=== PATIENT | male | born 1960 | race Hispanic/Latino ===

== ENCOUNTER 2017-09-18 18:32 | Emergency (ER) | payer MEDICARE ==
[2017-09-18 18:40] VITALS: BP 154/79; PULSE 74; RESP 16; TEMP 97.7; O2SAT 95
--- NOTE | 2017-09-18 18:54 | ED PDOC ---
Lower Extremity Pain/Injury Time Seen by Provider: 09/18/17 18:47 Chief Complaint (Nursing): Lower Extremity Problem/Injury Chief Complaint (Provider): possible FB in foot History Per: Patient Onset/Duration Of Symptoms: Days (x2 days) Current Symptoms Are (Timing): Still Present Additional Complaint(s): 57 y/o male presents to the ED complaining of right foot pain after stepping on a piece of wood last night. Patient states he may have splinter in his foot as every time he walks he feels pain. Patient denies fever, chills, or any further medical complaints. PMD: Orlin Johnson MD Past Medical History Reviewed: Historical Data, Nursing Documentation, Vital Signs Vital Signs: Last Vital Signs Temp 97.7 F 09/18/17 18:38 Pulse 74 09/18/17 18:38 Resp 16 09/18/17 18:38 BP 154/79 H 09/18/17 18:38 Pulse Ox 95 09/18/17 18:38 - Medical History PMH: Atrial Fibrillation, HTN, Hyperlipidemia, Sleep Apnea (not on CPap) - Surgical History Surgical History: Hernia Repair Other surgeries: right knee surgery, right foot surgery - Family History Family History: States: No Known Family Hx - Living Arrangements Living Arrangements: With Family - Social History Current smoker - smoking cessation education provided: No Alcohol: None Drugs: Denies - Immunization History Hx Tetanus Toxoid Vaccination: Yes - Home Medications Home Medications: Ambulatory Orders Medication Instructions Recorded Acetaminophen with Codeine 1 tab PO QID PRN 11/06/15 [Tylenol with Codeine No. 3 300 mg-30 mg] Aspirin [Ecotrin] 81 mg PO DAILY 11/06/15 Budesonide [Pulmicort Flexhaler] 180 mcg IH DAILY 11/06/15 Cetirizine HCl [Zyrtec Allergy] 10 mg PO DAILY 11/06/15 Metoprolol Succinate [Toprol XL] 100 mg PO DAILY 11/06/15 Mometasone Furoate [Nasonex] 17 gm NS DAILY 11/06/15 Ramipril [Altace] 2.5 mg PO DAILY 11/06/15 Silodosin [Rapaflo] 8 mg PO DAILY 11/06/15 Simvastatin 20 mg PO DAILY 11/06/15 Sulfamethoxazole/Trimethoprim 1 tab PO Q12 #0 tab 02/01/16 [Bactrim DS 800 mg-160 mg] Methylprednisolone [Medrol Dose 4 mg PO DAILY #21 mg 02/01/17 Pack (21 tabs)] Promethazine HCl/Codeine 5 ml PO HS #80 ml 02/01/17 [Prometh-Codein 6.25-10 mg/5 ml] - Allergies Allergies/Adverse Reactions: Allergies Allergy/AdvReac Type Severity Reaction Status Date / Time fentanyl AdvReac Intermediate VOMITING Verified 02/01/17 23:32 iv dye Allergy Intermediate SHORTNESS Uncoded 11/06/15 14:48 OF BREATH Review of Systems ROS Statement: Except As Marked, All Systems Reviewed And Found Negative (As per HPI, otherwise negative) Constitutional: Negative for: Fever, Chills Musculoskeletal: Positive for: Foot Pain (Right foot pain, possible foreign body ) Physical Exam - Reviewed Nursing Documentation Reviewed: Yes Vital Signs Reviewed: Yes - Physical Exam Appears: Positive for: Well, Non-toxic, No Acute Distress Skin: Positive for: Normal Color. Negative for: Rash Eye Exam: Positive for: Normal appearance Extremity: Positive for: Other (? splinter noted to palmar aspect of right foot , tenderness to affected area, no erythema or signs of infection) Neurologic/Psych: Positive for: Alert, Oriented (x3) - ECG O2 Sat by Pulse Oximetry: 95 (RA) Pulse Ox Interpretation: Normal - Other Rad Right foot x-ray X-Ray: Interpreted by Me, Viewed By Me X-Ray Interpretation: no fx, degenerative changes, heel spur, no radiopaque FB Medical Decision Making Medical Decision Making: Time: 18:53 Initial Impression: 57 y/o male with possible foreign body in right foot Plan: x-ray right foot Podiatry consult 8:30 pm: Dr. Sanches, podiatry resident at bedside. Resident recommends conservative treatment as foreign body is minute and should come out on its own. Patient was instructed to soak foot in epsom salts. Ortho shoe was applied to foot. Patient agrees with plan. Patient has a returning officer who will follow up with as outpatient. Scribe Attestation: Documented by Kit Rush acting as a scribe for Emily Fall MD. Scribe Attestation: All medical record entries made by the Scribe were at my direction and personally dictated by me. I have reviewed the chart and agree that the record accurately reflects my personal performance of the history, physical exam, medical decision making, and the department course for this patient. I have also personally directed, reviewed, and agree with the discharge instructions and disposition. Disposition - Clinical Impression Clinical Impression: Splinter of foot - Patient ED Disposition Is Patient to be Admitted: No Counseled Patient/Family Regarding: Studies Performed, Diagnosis, Need For Followup - Disposition Referrals: Podiatry Clinic [Outside] Disposition: Routine/Home Disposition Time: 20:35 Condition: STABLE Additional Instructions: Soak right foot in warm water and epsom salts. Tylenol or advil for pain as needed Follow up next week with your returning officer. Instructions: Soft Tissue Foreign Body (ED) Forms: [employer] (Ukrainian)
[2017-09-18] MEDS ORDERED: Lidocaine 1% Inj (20ml) IJ STA (19:58)
[2017-09-18] MEDS ORDERED: Lidocaine 1% Inj (20ml) ONE (20:01)
--- NOTE | 2017-09-18 20:15 | CP.PCM.CON ---
History of Present Illness - History of Present Illness History of Present Illness: 57 y/o male seen at bedside in ED after stepping on a wood floor yesterday and feeling a splinter perforate through the bottom of his right foot. Pt states he has felt pain and discomfort since the event and has been having difficulty walking due to the pain. Pt states he tried to see if he could pull it out but was unable to visualize anything. Pt denies taking any medications for the pain. Pt denies numbness, tingling or burning in the foot. Pt denies F/C/N/V/CP/ SOB PMH: arrhythmia, HTN PSH: "several surgeries" All: IV contrast dye, fentanyl Social Hx: social EtOH; denies cigarette or illicit drug use Review of Systems - Review of Systems All systems: reviewed and no additional remarkable complaints except (per HPI) Past Patient History - Past Medical History & Family History Past Medical History?: Yes - Past Social History Alcohol: None Drugs: Denies - CARDIAC Hx Atrial Fibrillation: Yes Hx Hypertension: Yes - PULMONARY Hx Sleep Apnea: Yes (not on CPap) - NEUROLOGICAL Hx Neurological Disorder: No - MUSCULOSKELETAL/RHEUMATOLOGICAL Hx Musculoskeletal Disorders: Yes Hx Back Pain: Yes Hx Falls: No Other/Comment: soulder, neck, knee problems - GASTROINTESTINAL Other/Comment: mesh in stomach - PSYCHIATRIC Hx Substance Use: No - SURGICAL HISTORY Hx Surgeries: Yes Hx Herniorrhaphy: Yes (mesh) Other/Comment: neck disc fusion, right knee surgery. right shoulder surgery. - ANESTHESIA Hx Anesthesia: Yes Hx Anesthesia Reactions: Yes (Fentanol allergy) Meds Allergies/Adverse Reactions: Allergies Allergy/AdvReac Type Severity Reaction Status Date / Time fentanyl AdvReac Intermediate VOMITING Verified 02/01/17 23:32 iv dye Allergy Intermediate SHORTNESS Uncoded 11/06/15 14:48 OF BREATH Physical Exam - Constitutional Appears: Well, Non-toxic, No Acute Distress - Extremities Exam Additional comments: Right lower extremity focused examination: Vasc: DP/PT pulses palpable 2/4. Temp gradient warm to cool. Pedal hair growth present. CFT < 3 sec to all digits. No pedal edema noted Derm: Pinpoint wood splinter noted to plantar aspect of foot at level of sub met 4. No surrounding erythema, no cellulitis, no drainage, no malodor, no purulence. No clinical signs of infection Neuro: Protective sensation grossly intact Ortho: Tenderness to palpation sub met 4 in area of wood splinter. All joints exhibit normal ROM upon both active and passive assessment - Neurological Exam Neurological exam: Alert, Oriented x3 - Psychiatric Exam Psychiatric exam: Normal Affect, Normal Mood Results - Vital Signs Recent Vital Signs: Last Vital Signs Temp 97.7 F 09/18/17 18:38 Pulse 74 09/18/17 18:38 Resp 16 09/18/17 18:38 BP 154/79 H 09/18/17 18:38 Pulse Ox 95 09/18/17 20:01 Assessment & Plan - Assessment and Plan (Free Text) Assessment: 57 y/o male with wooden splinter in right foor secondary to trauma Plan: Pt seen and evaluated in ED Discussed plan with attending Dr. Inman X-rays of R foot reviewed- no acute fracture or dislocation, no foreign body Surgical shoe and offloading forefoot bandage applied to R foot Pt instructed to perform daily warm water and epsom salt soaks Pt to follow up with his private rail signal mechanic Dr. Gan Thank you for this consult
--- NOTE | 2017-09-19 08:39 | RAD ---
PROCEDURE: Right Foot Radiographs. HISTORY: ? plantar FB COMPARISON: None. FINDINGS: BONES: Normal. No fracture. JOINTS: Normal. SOFT TISSUES: Normal. OTHER FINDINGS: Heel spur. IMPRESSION: No fracture.
== END 2017-09-18 20:44 | disposition home or self-care (01) ==
LOC: H.ER 18:32
DX: S90.859A Superficial foreign body, unspecified foot, initial encounter (principal); I10 Essential (primary) hypertension

== ENCOUNTER 2018-08-19 08:21 | Observation (INO) | payer MEDICARE ==
[2018-08-19] MEDS ORDERED: Sodium Chloride 0.9% 1,000 ML IV STA (09:20)
[2018-08-19 09:51] LABS: BASO # 0.1 K/uL (0.0-0.2); BASO % 0.6 % (0.0-2.0); EOS # 0.1 K/uL (0.0-0.7); EOS % 0.6 % (0.0-4.0); HEMOGLOBIN 15.4 g/dL (12.0-18.0); LYMPH # 1.1 K/uL (1.0-4.3); LYMPH % 11.8 % (20.0-40.0); MEAN CELL VOLUME 88.3 fl (80.0-94.0); MEAN CORPUSCULAR HEMOGLOBIN 30.1 pg (27.0-31.0); MEAN CORPUSCULAR HGB CONC 34.1 g/dL (33.0-37.0); MEAN PLATELET VOLUME 7.9 fl (7.2-11.7); MONO # 0.5 K/uL (0.0-0.8); MONO % 6.1 % (0.0-10.0); NEUT # 7.3 K/uL (1.8-7.0); NEUT % 80.9 % (50.0-75.0); RBC 5.1 Mil/uL (4.40-5.90); RED CELL DISTRIBUTION WIDTH 13.3 % (11.5-14.5)
[2018-08-19 09:57] LABS: ALB/GLOB RATIO 1.3 (1.0-2.1); ALBUMIN 4.5 g/dL (3.5-5.0); ALT/SGPT 47 U/L (21-72); AST/SGOT 38 U/L (17-59); BLOOD UREA NITROGEN 16 mg/dl (9-20); CALCIUM 9.5 mg/dL (8.4-10.2); GFR NON-AFRICAN AMERICAN > 60
[2018-08-19 10:01] LABS: URINE BILIRUBIN NEGATIVE (NEGATIVE); URINE BLOOD LARGE (NEGATIVE); URINE CLARITY CLEAR (Clear); URINE COLOR YELLOW (YELLOW); URINE GLUCOSE (UA) NEG (Normal); URINE LEUKOCYTE ESTERASE NEG Leu/uL (Negative); URINE PROTEIN NEGATIVE (NEGATIVE); URINE UROBILINOGEN 0.2-1.0 mg/dL (0.2-1.0)
--- NOTE | 2018-08-19 10:04 | ED PDOC ---
HPI: Abdomen Time Seen by Provider: 08/19/18 09:00 Chief Complaint (Nursing): Abdominal Pain Chief Complaint (Provider): Abdominal Pain History Per: Patient History/Exam Limitations: no limitations Onset/Duration Of Symptoms: Hrs (x 10) Current Symptoms Are (Timing): Still Present Location Of Pain/Discomfort: LUQ, LLQ Quality Of Discomfort: "Pain" Associated Symptoms: Back Pain Additional Complaint(s): 58 year old male with a history of atrial fibrillation, UTIs and kidney stones presents to the ED with left sided abdominal pain radiating to his back for the 10 hours. Patient reports he took Tylenol with codeine and vomited three times likely because he did not eat anything before them. He states that the pain feels similar to his kidney stones. Denies dysuria, hematuria, fever, headache and other complaints. PMD: Dr. Johnson Past Medical History Reviewed: Historical Data, Nursing Documentation, Vital Signs Vital Signs: Last Vital Signs Temp 97.6 F 08/19/18 08:25 Pulse 85 08/19/18 08:25 Resp 18 08/19/18 08:25 BP 162/120 H 08/19/18 08:25 Pulse Ox 95 08/19/18 08:25 - Medical History PMH: Atrial Fibrillation, HTN, Hyperlipidemia, Kidney Stones, Chronic Kidney Disease, Sleep Apnea (not on CPap) - Surgical History Surgical History: Hernia Repair - Family History Family History: States: Unknown Family Hx - Social History Current smoker - smoking cessation education provided: No Alcohol: None Drugs: Denies - Immunization History Hx Tetanus Toxoid Vaccination: Yes Hx Influenza Vaccination: Yes Hx Pneumococcal Vaccination: No - Home Medications Home Medications: Ambulatory Orders Medication Instructions Recorded Ascorbic Acid [Vitamin C 500 mg 1 tab PO DAILY 08/19/18 Tab] Finasteride [Proscar] 5 mg PO DAILY 08/19/18 Garlic 1 cap PO DAILY 08/19/18 Metoprolol Tartrate [Lopressor] 100 mg PO DAILY 08/19/18 RX: Aspirin [Ecotrin] 81 mg PO DAILY 08/19/18 RX: Cetirizine HCl [All Day 10 mg PO DAILY 08/19/18 Allergy Relief] RX: Ramipril [Altace] 2.5 mg PO DAILY 08/19/18 Simvastatin 10 mg PO HS 08/19/18 Tamsulosin [Flomax] 0.4 mg PO DAILY 08/19/18 - Allergies Allergies/Adverse Reactions: Allergies Allergy/AdvReac Type Severity Reaction Status Date / Time fentanyl AdvReac Intermediate VOMITING Verified 08/19/18 08:25 iv dye Allergy Intermediate SHORTNESS Uncoded 08/19/18 08:25 OF BREATH Review of Systems ROS Statement: Except As Marked, All Systems Reviewed And Found Negative Constitutional: Negative for: Fever Gastrointestinal: Positive for: Vomiting (x 3), Abdominal Pain (left sided). Negative for: Diarrhea Musculoskeletal: Positive for: Back Pain Physical Exam - Reviewed Nursing Documentation Reviewed: Yes Vital Signs Reviewed: Yes - Physical Exam Appears: Positive for: Non-toxic, No Acute Distress (obese) Head Exam: Positive for: ATRAUMATIC, NORMAL INSPECTION, NORMOCEPHALIC Skin: Positive for: Normal Color, Warm, Dry Eye Exam: Positive for: EOMI, Normal appearance, PERRL ENT: Positive for: Normal ENT Inspection Neck: Positive for: Normal, Painless ROM, Supple Cardiovascular/Chest: Positive for: Regular Rate, Rhythm. Negative for: Murmur Respiratory: Positive for: Normal Breath Sounds. Negative for: Wheezing, Respiratory Distress Gastrointestinal/Abdominal: Positive for: Bowel Sounds, Soft, Tenderness (mild left abdominal tenderness ). Negative for: Guarding Back: Positive for: Normal Inspection, L CVA Tenderness. Negative for: R CVA Tenderness Extremity: Positive for: Normal ROM (upper and lower extremities ). Negative for: Deformity Neurologic/Psych: Positive for: Alert, Oriented. Negative for: Motor/Sensory Deficits - Laboratory Results Result Diagrams: 08/19/18 09:30 08/19/18 09:30 - ECG O2 Sat by Pulse Oximetry: 95 (RA) Pulse Ox Interpretation: Normal Medical Decision Making Medical Decision Makin:18 Impression: abdominal pain r/o kidney stones and UTI --Abd & Pelvis CT --CMP --CBC --NS IV --Toradol 30 mg IV --Zofran Inj 4 mg IV --Urine cx --Urinalysis 10:50 Abd & Pelvis CT FINDINGS: LOWER THORAX: Unremarkable. LIVER: Extensive diffuse fatty infiltration of the liver. Smooth contour. No mass. No biliary ductal dilatation. No hepatomegaly. GALLBLADDER AND BILE DUCTS: Unremarkable. PANCREAS: Unremarkable. No gross lesion or ductal dilatation. SPLEEN: Minimal splenomegaly, up to 14.1 cm greatest dimension. No focal mass. ADRENALS: Unremarkable. No mass. KIDNEYS AND URETERS: Mild left hydronephrosis and proximal left hydroureter. Obstructing 6 mm calculus in proximal left ureter. 2 mm nonobstructing right upper pole renal calculus. No left renal calculus.. No renal mass. No right hydronephrosis. VASCULATURE: Unremarkable. No aortic aneurysm. Minimal atherosclerotic calcification of the a bdominal aorta. BOWEL: Unremarkable. No obstruction. No gross mural thickening. APPENDIX: Not identified. No secondary findings. PERITONEUM: Unremarkable. No free fluid. No free air. LYMPH NODES: Unremarkable. No enlarged lymph nodes. BLADDER: Unremarkable. REPRODUCTIVE: Normal prostate BONES: No acute fracture. OTHER FINDINGS: None. IMPRESSION: Obstructing 6 mm proximal left ureteral calculus with mild hydronephrosis and proximal hydroureter. 2 mm nonobstructing right upper pole renal calculus. Severe fatty infiltration of the liver. No additional abnormality. 12:07 --Upon reevaluation, patient is reporting mild improvement of symptoms but states still some pain. States that his last kidney stone was located in the same place 10 years ago and he had lithotripsy done at the time. Also reports that he wants a new urologist because his current one is in [place]. 13:[address] Liao, urologist senior [employer] consultant, states since stone is so large, will operate tomorrow either with lithotripsy or another means. pt agreeable, pt pcp caryn, admits to hospitalist, Dr martino aware. Scribe Attestation: Documented by Arlet Oliveira acting as a scribe for Shanell Willis MD Provider Scribe Attestation: All medical record entries made by the Scribe were at my direction and personally dictated by me. I have reviewed the chart and agree that the record accurately reflects my personal performance of the history, physical exam, medical decision making, and the department course for this patient. I have also personally directed, reviewed, and agree with the discharge instructions and disposition. Disposition - Clinical Impression Clinical Impression: Nephrolithiasis - Patient ED Disposition Is Patient to be Admitted: Yes Counseled Patient/Family Regarding: Studies Performed, Diagnosis - Disposition Disposition Time: 12:45 Condition: STABLE
--- NOTE | 2018-08-19 10:52 | CT ---
Date of service: 08/19/2018 PROCEDURE: CT Abdomen and Pelvis without intravenous contrast HISTORY: abd pain COMPARISON: 07/11/2011 TECHNIQUE: Without contrast.. Contrast dose: 0 Radiation dose: Total exam DLP = 0.0 mGy-cm. This CT exam was performed using one or more of the following dose reduction techniques: Automated exposure control, adjustment of the mA and/or kV according to patient size, and/or use of iterative reconstruction technique. FINDINGS: LOWER THORAX: Unremarkable. LIVER: Extensive diffuse fatty infiltration of the liver. Smooth contour. No mass. No biliary ductal dilatation. No hepatomegaly. GALLBLADDER AND BILE DUCTS: Unremarkable. PANCREAS: Unremarkable. No gross lesion or ductal dilatation. SPLEEN: Minimal splenomegaly, up to 14.1 cm greatest dimension. No focal mass. ADRENALS: Unremarkable. No mass. KIDNEYS AND URETERS: Mild left hydronephrosis and proximal left hydroureter. Obstructing 6 mm calculus in proximal left ureter. 2 mm nonobstructing right upper pole renal calculus. No left renal calculus.. No renal mass. No right hydronephrosis. VASCULATURE: Unremarkable. No aortic aneurysm. Minimal atherosclerotic calcification of the abdominal aorta. BOWEL: Unremarkable. No obstruction. No gross mural thickening. APPENDIX: Not identified. No secondary findings. PERITONEUM: Unremarkable. No free fluid. No free air. LYMPH NODES: Unremarkable. No enlarged lymph nodes. BLADDER: Unremarkable. REPRODUCTIVE: Normal prostate BONES: No acute fracture. OTHER FINDINGS: None. IMPRESSION: Obstructing 6 mm proximal left ureteral calculus with mild hydronephrosis and proximal hydroureter. 2 mm nonobstructing right upper pole renal calculus. Severe fatty infiltration of the liver. No additional abnormality.
[2018-08-19] MEDS: Pantoprazole 40 mg EC Tab PO SCH (14:20)
[2018-08-19] MEDS ORDERED: Pantoprazole 40 mg EC Tab PO ONE (14:21)
--- NOTE | 2018-08-19 15:10 | CP.PCM.CON ---
History of Present Illness - History of Present Illness History of Present Illness: 58 year old male with a history of kidney stones presents to the ED with left sided abdominal pain radiating to his back for the [address] Scan: Obstructing 6 mm proximal left ureteral calculus with mild hydronephrosis and proximal hydroureter. 2 mm non obstructing right upper pole renal calculus. Severe fatty infiltration of the liver. PMH: PAC's Nephrolithiasis Hypertension EKG: NSR Dr Liao will perform lithotripsy in AM Meds: Metoprolol Altace simvastatin The patient is cleared for Surgery Past Patient History - Infectious Disease Hx of Infectious Diseases: None - Past Medical History & Family History Past Medical History?: Yes - Past Social History Alcohol: None Drugs: Denies - CARDIAC Hx Atrial Fibrillation: Yes Hx Hypertension: Yes - PULMONARY Hx Sleep Apnea: Yes (not on CPap) - NEUROLOGICAL Hx Neurological Disorder: No - RENAL Hx Chronic Kidney Disease: Yes Hx Kidney Stones: Yes - MUSCULOSKELETAL/RHEUMATOLOGICAL Hx Musculoskeletal Disorders: Yes Hx Back Pain: Yes Hx Falls: No Other/Comment: soulder, neck, knee problems - GASTROINTESTINAL Other/Comment: mesh in stomach - PSYCHIATRIC Hx Substance Use: No - SURGICAL HISTORY Hx Surgeries: Yes Hx Herniorrhaphy: Yes (mesh) Other/Comment: neck disc fusion, right knee surgery. right shoulder surgery. - ANESTHESIA Hx Anesthesia: Yes Hx Anesthesia Reactions: Yes (Fentanol allergy) Meds Allergies/Adverse Reactions: Allergies Allergy/AdvReac Type Severity Reaction Status Date / Time fentanyl AdvReac Intermediate VOMITING Verified 08/19/18 08:25 iv dye Allergy Intermediate SHORTNESS Uncoded 08/19/18 08:25 OF BREATH - Medications Medications: Current Medications Ascorbic Acid (Vitamin C 500 Mg Tab) 1 mg PO DAILY [facility] Finasteride (Proscar) 5 mg PO DAILY [facility] Heparin Sodium (Porcine) (Heparin) 5,000 units SC Q8 [facility]; Protocol Metoprolol Tartrate (Lopressor) 100 mg PO DAILY [facility] Morphine Sulfate (Morphine) 4 mg IVP Q4 PRN PRN Reason: Pain, moderate (4-7) Pantoprazole Sodium (Protonix Ec Tab) 40 mg PO DAILY [facility] Last Admin: 08/19/18 14:20 Dose: 40 mg Ramipril (Altace) 2.5 mg PO DAILY [facility] Tamsulosin HCl (Flomax) 0.4 mg PO DAILY [place] Physical Exam - Head Exam Head Exam: NORMAL INSPECTION - Eye Exam Eye Exam: Normal appearance - ENT Exam ENT Exam: Normal Exam - Neck Exam Neck exam: Positive for: Normal Inspection - Respiratory Exam Respiratory Exam: NORMAL BREATHING PATTERN - Cardiovascular Exam Cardiovascular Exam: REGULAR RHYTHM Results - Vital Signs Recent Vital Signs: Last Vital Signs Temp 97.6 F 08/19/18 12:09 Pulse 78 08/19/18 12:09 Resp 18 08/19/18 12:09 BP 148/70 08/19/18 12:09 Pulse Ox 95 08/19/18 14:10 - Labs Result Diagrams: 08/19/18 09:30 08/19/18 09:30 Labs: Laboratory Results - last 24 hr 08/19/18 08/19/18 08/19/18 09:30 09:30 09:30 WBC 9.0 D RBC 5.10 Hgb 15.4 Hct 45.0 MCV 88.3 MCH 30.1 MCHC 34.1 RDW 13.3 Plt Count 206 MPV 7.9 Neut % (Auto) 80.9 H Lymph % (Auto) 11.8 L Pope % (Auto) 6.1 Eos % (Auto) 0.6 Baso % (Auto) 0.6 Neut # (Auto) 7.3 H Lymph # (Auto) 1.1 Pope # (Auto) 0.5 Eos # (Auto) 0.1 Baso # (Auto) 0.1 Sodium 142 Potassium 4.6 Chloride 105 Carbon Dioxide 26 Anion Gap 16 BUN 16 Creatinine 1.2 Est GFR ( Amer) > 60 Est GFR (Non-Af Amer) > 60 Random Glucose 109 Calcium 9.5 Total Bilirubin 0.6 AST 38 ALT 47 Alkaline Phosphatase 71 Total Protein 7.9 Albumin 4.5 Globulin 3.4 Albumin/Globulin Ratio 1.3 Urine Color Yellow Urine Clarity Clear Urine pH 6.0 Ur Specific [place] 1.010 Urine Protein Negative Urine Glucose (UA) Neg Urine Ketones Negative Urine Blood Large Urine Nitrate Negative Urine Bilirubin Negative Urine Urobilinogen 0.2-1.0 Ur Leukocyte Esterase Neg Urine RBC (Auto) 17 H Urine Microscopic WBC 1 Assessment & Plan (1) Nephrolithiasis Assessment and Plan: Cardiac ceja the pt is cleared for surgery Status: Acute (2) Atrial arrhythmia Assessment and Plan: Pt has PMH of PAC's controlled pt is in Normal Sinus Rhythm Status: Acute (3) Essential (primary) hypertension Status: Acute
--- NOTE | 2018-08-19 16:01 | CP.PCM.HP ---
<Chloe Ramsay - Last Filed: 08/19/18 17:35> History of Present Illness - History of Present Illness History of Present Illness: 58 yo M with hx HTN, COPD, A-fib, chronic DVTs, admitted due to obstructing 6 mm proximal left ureteral calculus and mild hydronephrosis. Pt started experiencing 10/10 sharp pain radiating from left flank to left groin yesterday at 11 pm; he took 2 Tylenol #3s that he had at home, and pain did not resolve. This morning, he walked 3 blocks to the ED due to continued pain. Had 3 episodes of vomiting overnight; pt thinks this is because he took painkillers on empty stomach. ROS: denies chest pain, shortness of breath, abdominal pain, nausea, diarrhea, further vomiting, dysuria In ED: Vitals: initially hypertensive in ED at 162/120; then down to 148/70; HR 85, afebrile, RR 18, O2 sat 95 on RA Labs: no leukocytosis, no electrolyte abnormalities, large blood in urine on UA CT abd pelvis w/o contrast: Obstructing 6 mm proximal left ureteral calculus with mild hydronephrosis and proximal hydroureter. 2 mm nonobstructing right upper pole renal calculus. Severe fatty infiltration of the liver. No additional abnormality. Urology was consulted: Dr. Liao; will take pt to OR tomorrow for lithotripsy vs other means of intervention Med hx: as above Surg hx: right knee, right shoulder, cervical neck fusion, multiple nose surgeries, foot surg Allergies: fentanyl, IV dye Social hx: never smoker, social drinker, no drug use Fam hx: brother with nephrolithiasis Present on Admission - Present on Admission Any Indicators Present on Admission: Yes History of DVT/PE: Yes - Notes: Notes:: chronic DVT Review of Systems - Review of Systems All systems: reviewed and no additional remarkable complaints except Review of Systems: as per HPI Past Patient History - Infectious Disease Hx of Infectious Diseases: None - Past Medical History & Family History Past Medical History?: Yes - Past Social History Alcohol: None Drugs: Denies - CARDIAC Hx Atrial Fibrillation: Yes Hx Hypertension: Yes - PULMONARY Hx Sleep Apnea: Yes (not on CPap) - NEUROLOGICAL Hx Neurological Disorder: No - RENAL Hx Chronic Kidney Disease: Yes Hx Kidney Stones: Yes - MUSCULOSKELETAL/RHEUMATOLOGICAL Hx Musculoskeletal Disorders: Yes Hx Back Pain: Yes Hx Falls: No Other/Comment: [place], neck, knee problems - GASTROINTESTINAL Other/Comment: mesh in stomach - PSYCHIATRIC Hx Substance Use: No - SURGICAL HISTORY Hx Surgeries: Yes Hx Herniorrhaphy: Yes (mesh) Other/Comment: neck disc fusion, right knee surgery. right shoulder surgery. - ANESTHESIA Hx Anesthesia: Yes Hx Anesthesia Reactions: Yes (Fentanol allergy) Meds Allergies/Adverse Reactions: Allergies Allergy/AdvReac Type Severity Reaction Status Date / Time fentanyl AdvReac Intermediate VOMITING Verified 08/19/18 08:25 iv dye Allergy Intermediate SHORTNESS Uncoded 08/19/18 08:25 OF BREATH Physical Exam - Constitutional Appears: Non-toxic, No Acute Distress - Head Exam Head Exam: NORMAL INSPECTION - Eye Exam Eye Exam: Normal appearance - ENT Exam ENT Exam: Mucous Membranes Moist - Respiratory Exam Respiratory Exam: Clear to Auscultation Bilateral, NORMAL BREATHING PATTERN - Cardiovascular Exam Cardiovascular Exam: REGULAR RHYTHM, +S1, +S2 - GI/Abdominal Exam GI & Abdominal Exam: Normal Bowel Sounds, Soft. absent: Tenderness - Extremities Exam Extremities exam: Negative for: calf tenderness Additional comments: evidence of chronic venous stasis - Back Exam Back exam: absent: CVA tenderness (L) - Neurological Exam Neurological exam: Alert, Oriented x3 - Psychiatric Exam Psychiatric exam: Normal Mood - Skin Skin Exam: Normal Color, Warm - Additional Findings Additional findings: exam done after pt received pain meds in ED Results - Vital Signs Recent Vital Signs: Last Vital Signs Temp 97.6 F 08/19/18 12:09 Pulse 78 08/19/18 12:09 Resp 18 08/19/18 12:09 BP 148/70 08/19/18 12:09 Pulse Ox 95 08/19/18 14:10 - Labs Result Diagrams: 08/19/18 09:30 08/19/18 09:30 Labs: Laboratory Results - last 24 hr 08/19/18 08/19/18 08/19/18 09:30 09:30 09:30 WBC 9.0 D RBC 5.10 Hgb 15.4 Hct 45.0 MCV 88.3 MCH 30.1 MCHC 34.1 RDW 13.3 Plt Count 206 MPV 7.9 Neut % (Auto) 80.9 H Lymph % (Auto) 11.8 L [place] % (Auto) 6.1 Eos % (Auto) 0.6 Baso % (Auto) 0.6 Neut # (Auto) 7.3 H Lymph # (Auto) 1.1 [place] # (Auto) 0.5 Eos # (Auto) 0.1 Baso # (Auto) 0.1 Sodium 142 Potassium 4.6 Chloride 105 Carbon Dioxide 26 Anion Gap 16 BUN 16 Creatinine 1.2 Est GFR ( Amer) > 60 Est GFR (Non-Af Amer) > 60 Random Glucose 109 Calcium 9.5 Total Bilirubin 0.6 AST 38 ALT 47 Alkaline Phosphatase 71 Total Protein 7.9 Albumin 4.5 Globulin 3.4 Albumin/Globulin Ratio 1.3 Urine Color Yellow Urine Clarity Clear Urine pH 6.0 Ur Specific [place] 1.010 Urine Protein Negative Urine Glucose (UA) Neg Urine Ketones Negative Urine Blood Large Urine Nitrate Negative Urine Bilirubin Negative Urine Urobilinogen 0.2-1.0 Ur Leukocyte Esterase Neg Urine RBC (Auto) 17 H Urine Microscopic WBC 1 Assessment & Plan - Assessment and Plan (Free Text) Assessment: 58 yo M with hx HTN, COPD, A-fib, sleep apnea, chronic DVTs, admitted due to obstructing 6 mm proximal left ureteral calculus and mild hydronephrosis. Urology consulted; for OR tomorrow with Dr. Liao for either with lithotripsy or another means of intervention. Plan: Obstructing Nephrolithiasis - Urology consult - Dr. Liao - Pain control with morphine - Urine culture pending - Flomax Nausea - Zofran prn Hypertension -Resume home meds ramipril and metoprolol -Monitor BP COPD - Pulm consult - Dr. Johnson; pending clearance A-fib - Normal sinus rhythm on EKG in ED - Cardiology consult - Dr Dubois, pt's outpatient occupancy specialist; pending clearance Diet - Heart healthy diet for dinner - NPO overnight DVT prophylaxis - Pt has hx chronic DVTs for several years; start on regular prophylactic dose of heparin <Yohannes Gonzalez D - Last Filed: 08/19/18 18:45> Results - Vital Signs Recent Vital Signs: Last Vital Signs Temp 97.6 F 08/19/18 12:09 Pulse 79 08/19/18 17:05 Resp 18 08/19/18 12:09 BP 167/89 H 08/19/18 17:05 Pulse Ox 95 08/19/18 14:10 - Labs Result Diagrams: 08/19/18 09:30 08/19/18 09:30 Labs: Laboratory Results - last 24 hr 08/19/18 08/19/18 08/19/18 09:30 09:30 09:30 WBC 9.0 D RBC 5.10 Hgb 15.4 Hct 45.0 MCV 88.3 MCH 30.1 MCHC 34.1 RDW 13.3 Plt Count 206 MPV 7.9 Neut % (Auto) 80.9 H Lymph % (Auto) 11.8 L [place] % (Auto) 6.1 Eos % (Auto) 0.6 Baso % (Auto) 0.6 Neut # (Auto) 7.3 H Lymph # (Auto) 1.1 [place] # (Auto) 0.5 Eos # (Auto) 0.1 Baso # (Auto) 0.1 Sodium 142 Potassium 4.6 Chloride 105 Carbon Dioxide 26 Anion Gap 16 BUN 16 Creatinine 1.2 Est GFR ( Amer) > 60 Est GFR (Non-Af Amer) > 60 Random Glucose 109 Calcium 9.5 Total Bilirubin 0.6 AST 38 ALT 47 Alkaline Phosphatase 71 Total Protein 7.9 Albumin 4.5 Globulin 3.4 Albumin/Globulin Ratio 1.3 Urine Color Yellow Urine Clarity Clear Urine pH 6.0 Ur Specific [place] 1.010 Urine Protein Negative Urine Glucose (UA) Neg Urine Ketones Negative Urine Blood Large Urine Nitrate Negative Urine Bilirubin Negative Urine Urobilinogen 0.2-1.0 Ur Leukocyte Esterase Neg Urine RBC (Auto) 17 H Urine Microscopic WBC 1 Attending/Attestation - Attestation I have personally seen and examined this patient.: Yes I have fully participated in the care of the patient.: Yes I have reviewed all pertinent clinical information: Yes Notes (Text): 08/19/18 18:44 Patient seen and examined with resident. Case discussed and agreed with assessment and plan of management
[2018-08-19 20:23] LABS: PARTIAL THROMBOPLASTIN TIME 31.4 Seconds (25.6-37.1)
[2018-08-20] MEDS ORDERED: HYDROmorphone 0.5 mg/0.5 ml ISec IVP STA (02:51)
[2018-08-20 06:32] LABS: BASO % 0.5 % (0.0-2.0); EOS # 0.2 K/uL (0.0-0.7); EOS % 3.1 % (0.0-4.0); HEMOGLOBIN 13.4 g/dL (12.0-18.0); LYMPH # 1.1 K/uL (1.0-4.3); LYMPH % 15.6 % (20.0-40.0); MEAN CELL VOLUME 90.6 fl (80.0-94.0); MEAN CORPUSCULAR HEMOGLOBIN 30.2 pg (27.0-31.0); MEAN CORPUSCULAR HGB CONC 33.3 g/dL (33.0-37.0); MEAN PLATELET VOLUME 7.6 fl (7.2-11.7); MONO # 0.7 K/uL (0.0-0.8); MONO % 9.5 % (0.0-10.0); NEUT # 5.2 K/uL (1.8-7.0); NEUT % 71.3 % (50.0-75.0); NRBC % 0.1 % (0.0-0.0); RBC 4.44 Mil/uL (4.40-5.90); RED CELL DISTRIBUTION WIDTH 13.1 % (11.5-14.5); WHITE BLOOD COUNT 7.3 K/uL (4.8-10.8)
[2018-08-20 07:06] LABS: CALCIUM 8.7 mg/dL (8.4-10.2)
[2018-08-20] MEDS ORDERED: Succinylcholine 200 mg/10 ml Inj IV ONE (07:15)
[2018-08-20] MEDS ORDERED: Lidocaine 2% Jelly (Uro-Jet) ONE (07:15)
[2018-08-20] MEDS ORDERED: cefTRIAXone (Rocephin) 1 gm Inj ONE (07:15)
[2018-08-20] MEDS ORDERED: Midazolam 2 MG/2 ML VIAL ONE (07:15)
[2018-08-20] MEDS ORDERED: Propofol 10 mg/ml Inj (20 ML) ONE (07:15)
[2018-08-20] MEDS ORDERED: Lidocaine 1% Inj (20ml) ONE (07:16)
[2018-08-20] MEDS ORDERED: MethylPREDNISolone Depo 40 mg/ml Inj ONE (07:16)
[2018-08-20] MEDS ORDERED: Bupivacaine HCl 0.25% PF (30 ml) Inj ONE (07:16)
[2018-08-20] MEDS ORDERED: Iohexol 300 10 ML ONE (07:16)
[2018-08-20] MEDS ORDERED: Bupivacaine 0.5% Inj(30mL) ONE (07:17)
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
[2018-08-20] MEDS ORDERED: Ketamine 50 mg/ml Inj (10 ml) ONE (08:13)
[2018-08-20] MEDS ORDERED: Lactated Ringer's 1,000 ML IV ONE (08:15)
--- NOTE | 2018-08-20 09:20 | CP.PCM.PN ---
Subjective - Date & Time of Evaluation Date of Evaluation: 08/20/18 Time of Evaluation: 10:50 - Subjective Subjective: Pt seen and evaluated at bedside; just returned from uro procedure. States he feels some pain in his groin area, but otherwise feels okay. Feels hungry and about to eat (had been NPO overnight). Objective - Vital Signs/Intake and Output Vital Signs (last 24 hours): Temp Pulse Resp BP Pulse Ox 99.1 F 83 18 127/68 99 08/20/18 09:10 08/20/18 09:10 08/20/18 09:10 08/20/18 09:10 08/20/18 09:10 Intake and Output: 08/20/18 08/20/18 06:59 18:59 Intake Total 200 Balance 200 - Medications Medications: Current Medications Ascorbic Acid (Vitamin C 500 Mg Tab) 500 mg PO DAILY [facility] Finasteride (Proscar) 5 mg PO DAILY [facility] Heparin Sodium (Porcine) (Heparin) 5,000 units SC Q8 [facility]; Protocol Last Admin: 08/19/18 17:30 Dose: 5,000 units Metoprolol Tartrate (Lopressor) 100 mg PO DAILY [facility] Last Admin: 08/20/18 07:55 Dose: 100 mg Morphine Sulfate (Morphine) 4 mg IVP Q4 PRN PRN Reason: Pain, moderate (4-7) Last Admin: 08/20/18 02:35 Dose: 4 mg Ondansetron HCl (Zofran Inj) 4 mg IVP Q4 PRN PRN Reason: Nausea/Vomiting Last Admin: 08/20/18 05:59 Dose: 4 mg Pantoprazole Sodium (Protonix Ec Tab) 40 mg PO DAILY [facility] Last Admin: 08/19/18 14:20 Dose: 40 mg Ramipril (Altace) 2.5 mg PO DAILY [facility] Last Admin: 08/19/18 17:05 Dose: 2.5 mg Tamsulosin HCl (Flomax) 0.4 mg PO DAILY [facility] - Labs Labs: 08/20/18 05:20 08/20/18 05:20 PT 11.0 Seconds (9.8-13.1) 08/19/18 20:05 INR 1.0 08/19/18 20:05 APTT 31.4 Seconds (25.6-37.1) 08/19/18 20:05 - Constitutional Appears: No Acute Distress - Head Exam Head Exam: NORMAL INSPECTION - Eye Exam Eye Exam: Normal appearance - Neck Exam Neck Exam: Full ROM - Respiratory Exam Respiratory Exam: Clear to Ausculation Bilateral, NORMAL BREATHING PATTERN. absent: Wheezes, Respiratory Distress - Cardiovascular Exam Cardiovascular Exam: REGULAR RHYTHM, +S1, +S2 - GI/Abdominal Exam GI & Abdominal Exam: Soft, Tenderness (mild suprapubic tenderness) - Extremities Exam Extremities Exam: absent: Calf Tenderness - Back Exam Back Exam: absent: CVA tenderness (L), CVA tenderness (R) - Neurological Exam Neurological Exam: Alert, Oriented x3 - Skin Skin Exam: Warm Assessment and Plan - Assessment and Plan (Free Text) Assessment: 58 yo M with hx HTN, COPD, A-fib, sleep apnea, chronic DVTs, admitted due to obstructing 6 mm proximal left ureteral calculus and mild hydronephrosis. Urolog y consulted; pt is POD s/p urological procedure by Dr. Liao today. Plan: Obstructing Nephrolithiasis - Urology consult - Dr. Liao - POD 0, s/p procedure - Flomax Nausea - Zofran prn Hypertension -Resume home meds ramipril and metoprolol -Monitor BP COPD - Pulm consult - Dr. Johnson; cleared for surg yesterday - Stable A-fib - Normal sinus rhythm on EKG in ED - Cardiology consult - Dr Dubois, pt's outpatient mobile home technician saw pt; clear ed for surg yesterday Diet - Heart healthy diet DVT prophylaxis - Pt has hx chronic DVTs for several years; regular prophylactic dose of heparin
[2018-08-20 10:11] VITALS: RESP 20
--- NOTE | 2018-08-20 10:24 | RAD ---
Date of service: 08/19/2018 HISTORY: clearance COMPARISON: 02/01/2017 TECHNIQUE: Chest PA and lateral FINDINGS: LUNGS: No active pulmonary disease. PLEURA: No significant pleural effusion identified. No pneumothorax apparent. CARDIOVASCULAR: No aortic atherosclerotic calcification present. Normal cardiac size. No pulmonary vascular congestion. OSSEOUS STRUCTURES: No significant abnormalities. VISUALIZED UPPER ABDOMEN: Normal. OTHER FINDINGS: None. IMPRESSION: No active disease.
--- NOTE | 2018-08-20 10:50 | CARD ---
APPROVED REPORT Date of service: 08/19/2018 EKG Measurement Heart [id number] <Conclusion> Normal sinus rhythm Normal Electrocardiogram
[2018-08-20] MEDS: Pantoprazole 40 mg EC Tab PO SCH (10:58)
[2018-08-20 11:08] VITALS: PULSE 71
[2018-08-20 11:09] VITALS: BP 129/89; TEMP 98.4; O2SAT 94
--- NOTE | 2018-08-20 12:57 | CP.PCM.DIS ---
<Chloe Ramsay - Last Filed: 08/20/18 13:27> Provider - Provider Date of Admission: 08/19/18 13:15 Attending physician: Yohannes Gonzalez MD Primary care physician: Dr. Johnson Consults: Urology - Dr. Liao Pulmonology - Dr. Johnson Cardiology - Dr. Dubois Time Spent in preparation of Discharge (in minutes): 30 Diagnosis - Discharge Diagnosis (1) Nephrolithiasis Status: Acute Priority: High (2) S/P ureteral stent placement Status: Acute (3) Essential (primary) hypertension Status: Chronic Priority: High Hospital Course - Lab Results Lab Results: Micro Results 08/19/18 09:30 Urine,Clean Catch Urine Culture - Final No Growth (<1,000 CFU/ML) Most Recent Lab Values WBC 7.3 K/uL (4.8-10.8) 08/20/18 05:20 RBC 4.44 Mil/uL (4.40-5.90) 08/20/18 05:20 Hgb 13.4 g/dL (12.0-18.0) D 08/20/18 05:20 Hct 40.3 % (35.0-51.0) 08/20/18 05:20 MCV 90.6 fl (80.0-94.0) D 08/20/18 05:20 MCH 30.2 pg (27.0-31.0) 08/20/18 05:20 MCHC 33.3 g/dL (33.0-37.0) 08/20/18 05:20 RDW 13.1 % (11.5-14.5) 08/20/18 05:20 Plt Count 177 K/uL (130-400) 08/20/18 05:20 MPV 7.6 fl (7.2-11.7) 08/20/18 05:20 Neut % (Auto) 71.3 % (50.0-75.0) 08/20/18 05:20 Lymph % (Auto) 15.6 % (20.0-40.0) L 08/20/18 05:20 [place] % (Auto) 9.5 % (0.0-10.0) 08/20/18 05:20 Eos % (Auto) 3.1 % (0.0-4.0) 08/20/18 05:20 Baso % (Auto) 0.5 % (0.0-2.0) 08/20/18 05:20 Neut # (Auto) 5.2 K/uL (1.8-7.0) 08/20/18 05:20 Lymph # (Auto) 1.1 K/uL (1.0-4.3) 08/20/18 05:20 Cory[place] # (Auto) 0.7 K/uL (0.0-0.8) 08/20/18 05:20 Eos # (Auto) 0.2 K/uL (0.0-0.7) 08/20/18 05:20 Baso # (Auto) 0.0 K/uL (0.0-0.2) 08/20/18 05:20 PT 11.0 Seconds (9.8-13.1) 08/19/18 20:05 INR 1.0 08/19/18 20:05 APTT 31.4 Seconds (25.6-37.1) 08/19/18 20:05 Sodium 141 mmol/l (132-148) 08/20/18 05:20 Potassium 4.0 MMOL/L (3.6-5.0) 08/20/18 05:20 Chloride 106 mmol/L (98-107) 08/20/18 05:20 Carbon Dioxide 27 mmol/L (22-30) 08/20/18 05:20 Anion Gap 12 (10-20) 08/20/18 05:20 BUN 21 mg/dl (9-20) H 08/20/18 05:20 Creatinine 1.6 mg/dl (0.8-1.5) H 08/20/18 05:20 Est GFR ( Amer) 54 08/20/18 05:20 Est GFR (Non-Af Amer) 44 08/20/18 05:20 Random Glucose 92 mg/dL (75-110) 08/20/18 05:20 Calcium 8.7 mg/dL (8.4-10.2) 08/20/18 05:20 Total Bilirubin 0.6 mg/dl (0.2-1.3) 08/19/18 09:30 AST 38 U/L (17-59) 08/19/18 09:30 ALT 47 U/L (21-72) 08/19/18 09:30 Alkaline Phosphatase 71 U/L (38-126) 08/19/18 09:30 Total Protein 7.9 G/DL (6.3-8.2) 08/19/18 09:30 Albumin 4.5 g/dL (3.5-5.0) 08/19/18 09:30 Globulin 3.4 gm/dL (2.2-3.9) 08/19/18 09:30 Albumin/Globulin Ratio 1.3 (1.0-2.1) 08/19/18 09:30 Urine Color Yellow (YELLOW) 08/19/18 09:30 Urine Clarity Clear (Clear) 08/19/18:30 Urine pH 6.0 (5.0-8.0) 08/19/18 09:30 Ur Specific [place] 1.010 (1.003-1.030) 08/19/18 09:30 Urine Protein Negative mg/dL (NEGATIVE) 08/19/18 09:30 Urine Glucose (UA) Neg mg/dL (Normal) 08/19/18 09:30 Urine Ketones Negative mg/dL (NEGATIVE) 08/19/18 09:30 Urine Blood Large (NEGATIVE) 08/19/18 09:30 Urine Nitrate Negative (NEGATIVE) 08/19/18:30 Urine Bilirubin Negative (NEGATIVE) 08/19/18 09:30 Urine Urobilinogen 0.2-1.0 mg/dL (0.2-1.0) 08/19/18 09:30 Ur Leukocyte Esterase Neg Andie/uL (Negative) 08/19/18 09:30 Urine RBC (Auto) 17 /hpf (0-3) H 08/19/18 09:30 Urine Microscopic WBC 1 /hpf (0-5) 08/19/18 09:30 - Hospital Course Hospital Course: 58 yo M with hx HTN, COPD, A-fib, chronic DVTs, admitted due to obstructing 6 mm proximal left ureteral calculus and mild hydronephrosis. Pt started experiencing 10/10 sharp pain radiating from left flank to left groin 2 days ago at 11 pm; he took 2 Tylenol #3s that he had at home, and pain did not resolve. On the morning of admission, he walked 3 blocks to the ED due to continued pain. In ED, he denied chest pain, shortness of breath, abdominal pain, nausea, diarrhea, dysuria. Labswork showed no leukocytosis, no electrolyte abnormalities, large blood in urine on UA, urine culture negative; CT abd pelvis w/o contrast showed obstructing 6 mm proximal left ureteral calculus with mild hydronephrosis and proximal hydroureter. 2 mm nonobstructing right upper pole renal calculus. Urology was consulted: Dr. Liao; and pt was taken to OR early this morning for ureteral stent placement. Since returning to the medical floor, he has tolerated diet, and has done well, and is stable for discharge home today. He is advised to follow up with urologist Dr. Liao and with primary care doctor, Dr. Johnson in 1 week. Discharge Exam - Head Exam Head Exam: NORMAL INSPECTION - Eye Exam Eye Exam: Normal appearance - ENT Exam ENT Exam: Mucous Membranes Moist - Respiratory Exam Respiratory Exam: Clear to PA & Lateral, NORMAL BREATHING PATTERN. absent: Rales, Wheezes - Cardiovascular Exam Cardiovascular Exam: REGULAR RHYTHM, +S1, +S2 - GI/Abdominal Exam GI & Abdominal Exam: Normal Bowel Sounds, Soft - Back Exam Back exam: absent: CVA tenderness (L), CVA tenderness (R) - Neurological Exam Neurological exam: Alert, Oriented x3 - Skin Skin Exam: Dry, Warm Discharge Plan - Discharge Medications Prescriptions: Ondansetron HCl [Zofran] 4 mg PO Q6 PRN #16 tablet PRN Reason: Nausea/Vomiting Tramadol HCl [Ultram] 50 mg PO Q4 PRN #20 tablet PRN Reason: Pain, Moderate (4-7) - Follow Up Plan Condition: STABLE Disposition: HOME/ ROUTINE Instructions: Kidney Stones (DC), Ureteroscopy, Cystoscopy (DC) Additional Instructions: follow up with primary MD and Dr Liao 1 week Referrals: Seth Liao MD [Medical Doctor] - Orlin Johnson MD [Family Provider] - <Yohannes Gonzalez - Last Filed: 08/20/18 14:01> Provider - Provider Date of Admission: 08/19/18 13:15 Attending physician: Yohannes Gonzalez MD Hospital Course - Lab Results Lab Results: Micro Results 08/19/18 09:30 Urine,Clean Catch Urine Culture - Final No Growth (<1,000 CFU/ML) Most Recent Lab Values WBC 7.3 K/uL (4.8-10.8) 08/20/18 05:20 RBC 4.44 Mil/uL (4.40-5.90) 08/20/18 05:20 Hgb 13.4 g/dL (12.0-18.0) D 08/20/18 05:20 Hct 40.3 % (35.0-51.0) 08/20/18 05:20 MCV 90.6 fl (80.0-94.0) D 08/20/18 05:20 MCH 30.2 pg (27.0-31.0) 08/20/18 05:20 MCHC 33.3 g/dL (33.0-37.0) 08/20/18 05:20 RDW 13.1 % (11.5-14.5) 08/20/18 05:20 Plt Count 177 K/uL (130-400) 08/20/18 05:20 MPV 7.6 fl (7.2-11.7) 08/20/18 05:20 Neut % (Auto) 71.3 % (50.0-75.0) 08/20/18 05:20 Lymph % (Auto) 15.6 % (20.0-40.0) L 08/20/18 05:20 Cory[place] % (Auto) 9.5 % (0.0-10.0) 08/20/18 05:20 Eos % (Auto) 3.1 % (0.0-4.0) 08/20/18 05:20 Baso % (Auto) 0.5 % (0.0-2.0) 08/20/18 05:20 Neut # (Auto) 5.2 K/uL (1.8-7.0) 08/20/18 05:20 Lymph # (Auto) 1.1 K/uL (1.0-4.3) 08/20/18 05:20 [place] # (Auto) 0.7 K/uL (0.0-0.8) 08/20/18 05:20 Eos # (Auto) 0.2 K/uL (0.0-0.7) 08/20/18 05:20 Baso # (Auto) 0.0 K/uL (0.0-0.2) 08/20/18 05:20 PT 11.0 Seconds (9.8-13.1) 08/19/18 20:05 INR 1.0 08/19/18 20:05 APTT 31.4 Seconds (25.6-37.1) 08/19/18 20:05 Sodium 141 mmol/l (132-148) 08/20/18 05:20 Potassium 4.0 MMOL/L (3.6-5.0) 08/20/18 05:20 Chloride 106 mmol/L (98-107) 08/20/18 05:20 Carbon Dioxide 27 mmol/L (22-30) 08/20/18 05:20 Anion Gap 12 (10-20) 08/20/18 05:20 BUN 21 mg/dl (9-20) H 08/20/18 05:20 Creatinine 1.6 mg/dl (0.8-1.5) H 08/20/18 05:20 Est GFR ( Amer) 54 08/20/18 05:20 Est GFR (Non-Af Amer) 44 08/20/18 05:20 Random Glucose 92 mg/dL (75-110) 08/20/18 05:20 Calcium 8.7 mg/dL (8.4-10.2) 08/20/18 05:20 Total Bilirubin 0.6 mg/dl (0.2-1.3) 08/19/18 09:30 AST 38 U/L (17-59) 08/19/18 09:30 ALT 47 U/L (21-72) 08/19/18 09:30 Alkaline Phosphatase 71 U/L (38-126) 08/19/18 09:30 Total Protein 7.9 G/DL (6.3-8.2) 08/19/18 09:30 Albumin 4.5 g/dL (3.5-5.0) 08/19/18 09:30 Globulin 3.4 gm/dL (2.2-3.9) 08/19/18 09:30 Albumin/Globulin Ratio 1.3 (1.0-2.1) 08/19/18 09:30 Urine Color Yellow (YELLOW) 08/19/18 09:30 Urine Clarity Clear (Clear) 08/19/18 09:30 Urine pH 6.0 (5.0-8.0) 08/19/18 09:30 Ur Specific [place] 1.010 (1.003-1.030) 08/19/18 09:30 Urine Protein Negative mg/dL (NEGATIVE) 08/19/18 09:30 Urine Glucose (UA) Neg mg/dL (Normal) 08/19/18 09:30 Urine Ketones Negative mg/dL (NEGATIVE) 08/19/18 09:30 Urine Blood Large (NEGATIVE) 08/19/18 09:30 Urine Nitrate Negative (NEGATIVE) 08/19/18 09:30 Urine Bilirubin Negative (NEGATIVE) 08/19/18 09:30 Urine Urobilinogen 0.2-1.0 mg/dL (0.2-1.0) 08/19/18 09:30 Ur Leukocyte Esterase Neg Andie/uL (Negative) 08/19/18 09:30 Urine RBC (Auto) 17 /hpf (0-3) H 08/19/18 09:30 Urine Microscopic WBC 1 /hpf (0-5) 08/19/18 09:30 Attending/Attestation - Attestation I have personally seen and examined this patient.: Yes I have fully participated in the care of the patient.: Yes I have reviewed all pertinent clinical information, including history, physical exam and plan: Yes Notes (Text): 08/20/18 14:00 Patient seen and examined with resident. Case discussed and agreed with assessment and plan of management.
--- NOTE | 2018-08-20 13:15 | RAD ---
Date of service: 08/20/2018 PROCEDURE: Intraoperative Fluoroscopy. HISTORY: CYSTO: LEFT URETERAL STENT PLACEMENT FINDINGS: Fluoroscopic assistance was provided for cystogram in left ureteral stent placement. Please refer to the operative report from WALKER Monet. Total fluoroscopic time (continuous mode) utilized during the procedure eighteen seconds.
--- NOTE | 2018-08-20 20:12 | OP ---
PROCEDURE DATE: 08/20/2018 PREOPERATIVE DIAGNOSIS: Left renal colic secondary to left ureteropelvic junction calculus. POSTOPERATIVE DIAGNOSIS: Left renal colic secondary to left ureteropelvic junction calculus. PROCEDURES PERFORMED: Cystoscopy, left ureteroscopy, and J-stent placement. DESCRIPTION OF PROCEDURE: Under general anesthesia, the patient was placed on the operating room table in the dorsal lithotomy position. The area of the groin was draped and prepped in a sterile manner. Using a long ureteroscope, I entered into the bladder atraumatically, took a quick observation. There was no stone seen within the bladder confines. At this time, I engaged the left ureteral orifice over a floppy tip guidewire, and I advanced the ureteroscope to its full length to the area of where I suspect there to be the renal pelvis. I did not see a stone at this time, but the patient said his last acute episode of pain was only about four hours prior to this procedure and he had denied passing any stones. I could not use any IV contrast to look for negative shadows because the patient is highly allergic to iodine contrast. So at which point, the decision here is made to leave the guidewire in place. I removed the ureteroscope doing a second look in the ureter to see for any residual stones. Then, I placed a 6-Nepali multi-length double J-stent over that existing guidewire. It appears to coil in what is the renal pelvis and at this point, the instrumentation was removed. The J-stent is left in fluoroscopic good position. The patient then was taken from the operating room in good condition. Seth Liao MD
--- NOTE | 2018-08-21 04:35 | CON ---
DATE: 08/19/2018 CONSULTATION REPORT This is a 58-year-old male patient who was seen through the emergency room because of acute left renal colic. This is not the first episode for the patient. This is in fact his sixth episode with renal calculus disease. At this time, the pain is located on the left side. He had a CT scan done in the emergency room showing the presence of an obstructing proximal left 6-mm ureteropelvic junction stone. The patient is in [id number] pain. Incidentally, finding is a 2-mm right renal nonobstructing stone on the CAT scan as noted. The patient has a normal white count of 9000. Chemistries showed BUN and creatinine to be 16 and 1.2. At this point because of the localization and the intensity of the pain, I suggested that the patient be admitted and hydrated and strain all his urine. If there is any chance of this stone move, we will try it overnight. If not, in the following morning we will probably conduct ureteroscopy with J-stent placement. The patient has other related history of COPD, but at this time is stable. Seth Liao MD
== END 2018-08-20 14:43 | disposition home or self-care (01) ==
LOC: H.ER 08:21 → H.ERHOLD 13:15 → H.MEDSURG1 22:20
DX: N13.2 Hydronephrosis with renal and ureteral calculous obstruction (principal); N18.9 Chronic kidney disease, unspecified; G47.33 Obstructive sleep apnea (adult) (pediatric); Z86.74 Personal history of sudden cardiac arrest; Z87.442 Personal history of urinary calculi; Z87.891 Personal history of nicotine dependence; Z98.1 Arthrodesis status; Z87.01 Personal history of pneumonia (recurrent); J34.2 Deviated nasal septum; N13.30 Unspecified hydronephrosis; R31.9 Hematuria, unspecified; Z79.899 Other long term (current) drug therapy; E11.22 Type 2 diabetes mellitus with diabetic chronic kidney disease; E78.5 Hyperlipidemia, unspecified; I12.9 Hypertensive chronic kidney disease with stage 1 through stage 4 chronic kidney disease, or unspecified chronic kidney disease; I48.2 Chronic atrial fibrillation; J44.9 Chronic obstructive pulmonary disease, unspecified; K76.0 Fatty (change of) liver, not elsewhere classified; Z86.718 Personal history of other venous thrombosis and embolism
CPT/HCPCS: 36415; 52332; 71046; 74176; 80048; 80053; 81003; 85025; 85610; 85730; 87086; 93005; 96372; 96374; 96375; 96376; 99285; C1769; C2617; G0378; J0330; J0360; J0696; J1170; J1644; J1885; J2001; J2250; J2270; J2405; J2704; J7030; J7120

== ENCOUNTER 2018-10-25 06:55 | Day surgery (SDC) | payer MEDICARE ==
[2018-10-20 14:26] VITALS: BMI 41.5
[2018-10-20 14:33] VITALS: RESP 18
[2018-10-25] MEDS ORDERED: Propofol 10 mg/ml Inj (20 ML) ONE (07:46)
[2018-10-25] MEDS ORDERED: Lactated Ringer's 1,000 ML IV ONE (08:28)
[2018-10-25] MEDS ORDERED: Lidocaine 2% Jelly (Uro-Jet) ONE (08:38)
[2018-10-25] MEDS ORDERED: Sevoflurane - Inhalation Anesthetic Liq (250 ml) ONE (08:47)
[2018-10-25] MEDS ORDERED: cefTRIAXone (Rocephin) 1 gm Inj IM ONE (10:45)
[2018-10-25] MEDS ORDERED: Dexamethasone 4 mg/1 ml IVP PRN (11:14)
[2018-10-25] MEDS ORDERED: HYDROmorphone 0.5 mg/0.5 ml ISec IVP PRN (11:14)
[2018-10-25] MEDS ORDERED: Lactated Ringer's 1,000 ML IV SCH (11:15)
[2018-10-25 12:22] VITALS: PULSE 58
[2018-10-25 13:10] VITALS: BP 143/90; TEMP 97.5; O2SAT 96
--- NOTE | 2018-10-25 22:39 | OP ---
PROCEDURE DATE: 10/25/2018 PREOPERATIVE DIAGNOSIS: Post left lithotripsy. POSTOPERATIVE DIAGNOSIS: Post left lithotripsy. PROCEDURE PERFORMED: Cystoscopy, left ureteroscopy, and J-stent removal. SURGEON: Seth Liao MD DESCRIPTION OF PROCEDURE: The patient was placed on the operating table in the dorsal lithotomy position. The area of the groin was draped and prepped in a sterile manner. At this time, using a #21 cystoscope, I entered into the bladder atraumatically and identified the left double J-stent. I pulled the tail out. Through that J-stent, I placed a sensor wire and then used that as a safety. Once this was in place, I then performed ureteroscopy using a long ureteroscope. I was able to get to the level of the renal pelvis. I did an x-ray, did not see any shadowing of stone and at that point, the look going up and coming down I did not see any residual stone fragments. Once this observation was made, the sensor wire was also pulled out. The patient now is appliance-free and he was taken from the operating room in good condition. Seth Liao MD
--- NOTE | 2018-10-26 15:29 | RAD ---
Date of service: 10/25/2018 PROCEDURE: Intraoperative Fluoroscopy. HISTORY: CYSTO FINDINGS: Fluoroscopic assistance was provided. Please refer to the operative report from ABDULKADIR Hicks.
== END 2018-10-25 13:15 | disposition home or self-care (01) ==
LOC: H.OPSURG 06:55
PROVIDERS: ATTEND Urology
DX: N20.0 Calculus of kidney (principal); I48.91 Unspecified atrial fibrillation; J45.909 Unspecified asthma, uncomplicated; J44.9 Chronic obstructive pulmonary disease, unspecified; I10 Essential (primary) hypertension; G47.33 Obstructive sleep apnea (adult) (pediatric)
CPT/HCPCS: 52351; 88304; C1769; J0696; J2405; J2704; J7120